=== PATIENT | female | born 1945 | race Caucasian/White ===

== ENCOUNTER 2017-12-13 13:06 | Outpatient (CLI) | payer MEDICARE, BC | END 2017-12-13 13:07 | disposition home or self-care (01) | LOC: BICMAMMO 13:06 | PROVIDERS: ATTEND Internal Medicine | DX: Z12.31 Encounter for screening mammogram for malignant neoplasm of breast (principal) | CPT/HCPCS: 77063; 77067 ==

== ENCOUNTER 2018-05-12 00:14 | Outpatient (CLI) | payer MEDICARE, BC ==
[2018-05-12 09:48] LABS: #Eosinphils 0.1 thou/uL (0.0-0.7); #Lymphocytes 1.8 thou/uL (1.20-3.40); #Monocytes 0.4 thou/uL (0.11-0.59); #Neutrophils 3.5 thou/uL (1.40-6.50); %Basophils 0.5 % (0.0-1.0); %Eosinophils 2.5 % (0.0-10.0); %Lymphocytes 29.8 % (21.0-51.0); %Monocytes 7.5 % (0.0-10.0); %Neutrophils 59.7 % (42.0-75.0); Bilirubin Negative (Negative); Blood, Urine Negative (Negative); Clarity CLEAR (Clear); Glucose, Urine (Dipstick) >=1000 mg/dL (Negative); Hemoglobin 14.9 g/dL (12.0-16.0); Leukocyte Negative (Negative); Mean Corpuscular HGB CONC 33.9 g/dL (32.0-36.0); Mean Corpuscular Hemoglobin 31.2 pg (27.0-31.0); Mean Platelet Volume 8.8 fL (7.4-10.4); Nitrite Negative (Negative); Platelet Count 207 thou/uL (130-400); Protein, Urine (Dipstick) Negative (Neg-Trace); RBC Distribution Width 11.6 % (11.5-14.5); Red Blood Cell (RBC) Count 4.77 mill/uL (4.20-5.40); Specific Gravity, Urine 1.008 (1.002-1.036); Urobilinogen 0.2 mg/dL (0.2-1.0); White Blood Cell (WBC) Count 5.9 thou/uL (4.8-10.8); pH, Urine 5.5 (5.0-9.0)
[2018-05-12 09:50] LABS: Bacteria/HPF None Seen HPF (None Seen); Hyaline Casts/LPF 0-3 HYALINE CAST LPF (0-3 Hyaline); Pathc Cast-AUWi Flag 0.13 (0-2.49); RBC/HPF 0-3 HPF (0-3); Squamous Epithelial 0-3 HPF (0-3); WBC/HPF 0-3 HPF (0-3)
[2018-05-12 09:54] LABS: INR-International Normal Ratio 0.9; Prothrombin Time 12.3 SEC (12.0-14.7)
[2018-05-12 10:16] LABS: Anion Gap 13 mmol/L (10-20); BUN (Urea Nitrogen) 16 mg/dL (9.8-20.1); Calc. Creatinine Clearance 0 mL/min (70-130); Calcium 9.9 mg/dL (7.8-10.44); Carbon Dioxide 25 mmol/L (23-31); Chloride 102 mmol/L (98-107); Estimated GFR-MDRD 49; Glucose 354 mg/dL (83-110); Potassium 4.2 mmol/L (3.5-5.1); Sodium 136 mmol/L (136-145)
--- NOTE | 2018-05-13 16:40 | EKG ---
Test Reason : Blood Pressure : / mmHG Vent. Rate : 062 BPM Atrial Rate : 062 BPM P-R Int : 202 ms QRS Dur : 086 ms QT Int : 420 ms P-R-T Axes : 056 019 043 degrees QTc Int : 426 ms Normal sinus rhythm Low voltage QRS Cannot rule out Anterior infarct , age undetermined Abnormal ECG When compared with ECG of 29-DEC-2006 14:53, No significant change was found Confirmed by DR. Brisa LUCIA ([id number]) on 05/13/2018 4:39:41 PM Referred By: AMANDA Confirmed By:DR. Brisa LUCIA
== END 2018-05-12 00:15 | disposition home or self-care (01) ==
LOC: LABBT 00:14
PROVIDERS: ATTEND Orthopaedic Surgery
DX: Z01.818 Encounter for other preprocedural examination (principal); M17.12 Unilateral primary osteoarthritis, left knee
CPT/HCPCS: 80048; 81001; 85025; 85610; 86850; 86900; 86901; 87081; 93005; 93010

== ENCOUNTER 2018-07-21 13:30 | Inpatient (IN) | payer MEDICARE, BC ==
[2018-07-27 10:54] LABS: Hemoglobin 15.8 g/dL (12.0-16.0); Mean Corpuscular HGB CONC 34.3 g/dL (32.0-36.0); Mean Corpuscular Hemoglobin 31.6 pg (27.0-31.0); Mean Corpuscular Volume 92.2 fL (78.0-98.0); Mean Platelet Volume 9.2 fL (7.4-10.4); Platelet Count 171 thou/uL (130-400); RBC Distribution Width 12.1 % (11.5-14.5); Red Blood Cell (RBC) Count 5.01 mill/uL (4.20-5.40)
[2018-07-27 10:59] LABS: INR-International Normal Ratio 0.9; Prothrombin Time 12.5 SEC (12.0-14.7)
[2018-08-02] MEDS ORDERED: Fentanyl 100 MCG/2 ML VIAL ONE ×4 (07:48→11:53)
[2018-08-02] MEDS ORDERED: Midazolam HCl 2 mg/2 ml Vial ONE (07:48)
[2018-08-02] MEDS ORDERED: Sodium Chloride 0.9% 10 ML ONE (07:49)
[2018-08-02] MEDS ORDERED: Tranexamic Acid 1,000 MG/10 ML VIAL ONE (08:14)
[2018-08-02] MEDS ORDERED: Sodium Chloride 0.9% 100 ML ONE (08:14)
[2018-08-02] MEDS ORDERED: Fentanyl 100 MCG/2 ML VIAL IV PRN (09:00)
[2018-08-02] MEDS ORDERED: Bupivacaine/Epinephrine 0.25% 30 ML VIAL ONE (09:10)
[2018-08-02] MEDS ORDERED: Zolpidem Tartrate 5 MG TAB PO PRN ×2 (09:37→11:36)
[2018-08-02] MEDS ORDERED: Ondansetron PF 4 MG/2 ML Vial IVP PRN ×2 (09:37→11:36)
[2018-08-02] MEDS ORDERED: traMADol HCl 50 MG TAB PO PRN ×3 (09:37→11:36)
[2018-08-02] MEDS ORDERED: Promethazine HCl 25 MG/ML VIAL IM PRN ×3 (09:37→11:36)
[2018-08-02] MEDS ORDERED: HYDROcodone/Acetaminophen 10/325 mg Tablet PO PRN ×3 (09:37→11:36)
[2018-08-02] MEDS ORDERED: Promethazine HCl 25 MG/ML VIAL SLOW IVP PRN (11:31)
[2018-08-02] MEDS ORDERED: Ondansetron HCl/PF 4 MG/2 ML Vial IVP PRN (11:31)
[2018-08-02] MEDS ORDERED: Acetaminophen 325 MG TAB PO PRN (11:36)
[2018-08-02] MEDS ORDERED: Ketorolac Tromethamine 30 MG/ML VIAL IVP PRN (11:36)
[2018-08-02] MEDS ORDERED: Fentanyl 100 MCG/2 ML VIAL SLOW IVP PRN ×2 (11:36)
[2018-08-02] MEDS ORDERED: diphenhydrAMINE 25 MG CAP PO PRN (11:36)
[2018-08-02] MEDS ORDERED: Ketorolac Tromethamine 30 MG/ML VIAL IVP SCH (12:00)
--- NOTE | 2018-08-02 12:26 | RAD ---
TWO VIEWS LEFT KNEE: DATE: 08/02/2018. PROVIDED CLINICAL HISTORY: Postop. FINDINGS: Comparison 04/14/2018. Interval postoperative changes of left total knee arthroplasty. Associated so ft tissue gas. No evidence for an acute osseous abnormality. IMPRESSION: As above. POS: OFF
--- NOTE | 2018-08-02 12:37 | OP ---
DATE OF PROCEDURE: 08/02/2018 PREOPERATIVE DIAGNOSES: 1. Left knee osteoarthritis. 2. Parameniscal cyst. POSTOPERATIVE DIAGNOSES: 1. Left knee osteoarthritis. 2. Parameniscal cyst. PROCEDURES PERFORMED: Left total knee arthroplasty with decompression of parameniscal cyst. DIRECTOR ENERGY: Harman Segura PA-C ANESTHESIOLOGIST: Dr. Jo. ANESTHESIA: The patient received LMA with a single-shot sciatic and an adductor canal block. ESTIMATED BLOOD LOSS: 100 mL. TOURNIQUET TIME: 77 minutes at 300 mmHg. ANTIBIOTICS: Ancef 2 g, vancomycin 1 g, and TXA 1 g. The patient received a size 4 femur, size 4 tibia, 4 x 9 mm CS poly and an A29 patella triathlon implants. COMPLICATIONS: None. HISTORY OF PRESENT ILLNESS: Ms. Lindsey is a 73-year-old female, status post with left knee arthroplasty, failed conservative measures, desired to proceed left total knee arthroplasty. I discussed risks and benefits of surgery to include pain, scar, bleeding, infection, damage to vital structures, decreased range of motion and strength, nonunion, malunion, fracture above and below the stem, loss of life or limb. She understood the risks and benefits, and elected to proceed. DESCRIPTION OF PROCEDURE: Time-out was performed designating the patient's left lower extremity as the operative site based on site, consents, markings. After time-out, the patient's left lower extremity was prepped and draped in sterile fashion. The tourniquet was brought up and left up for a total of 77 minutes. Anterior midline incision in the medial patellar approach was made, excised the fat pad. The medial soft tissue released. The small stab incision helped decompress the meniscus, helped the soft tissue medially. We then removed the meniscal cyst. We expressed some of the gelatinous material from the meniscus, then everted the patella, exposed distal femur, mapped out our distal femur cut, 0 degrees of varus and valgus, 10 and 9 and 4 degrees of anterior slope. We then pinned our 3 degree block guide, it was initially for a right, which we re-pinned for left. We cut. We sized to 4 and cut with a 4 degree block anterior and posterior chamfer cuts , removed the osteophytes. We then placed our pickle fork down our soft tissue. Medial soft tissue released, exposed our distal tibia, mapped out the distal tibia and cut in about 0, 6, and 4 degrees of slope. Removed the osteophytes, liked the overall alignment and position. We then went back and we removed all the osteophytes and placed our laminar sales estimator medial and lateral. Did our medial meniscectomy, decompressed the medial cyst expressing the remainder of it out and did our lamina sales estimator removed the posterior osteophytes with medial and laterally. We completed this, decompressing the PCL, removing the osteophytes medial and laterally off the medial tibial plateau. We then pinned our tibial tray into position in-line with the tibial tubercle 1/3rd down the shaft. Placed our 9 polys, placed our femur in position. The patient came out extension, had good stable posterior drawer with PCL, had good flexion-extension axis. We then everted the patella, cut from a 24 down to a 13 mm. We placed A29 patella, tracked well. We then washed, removed all implants, drilled our legs for femur cut our keel for tibia, drilled some hole in the small medial defect. We then placed our tibial tray, cemented into place, removed excess cement, placed our poly, placed our femur, removed excess cement, placed our patella, removed excess cement, washed, closed with #2 Vicryl, 2 STRATAFIX, 0 STRATAFIX, 3-0 STRATAFIX, and glue. The patient will be admitted for postop protocol, followed inhouse by Medicine and Anesthesiology. Job ID: [id number] [facility]
[2018-08-02] MEDS: Sodium Chloride 0.9% 1,000 ML IV SCH ×2 (15:47→20:03)
[2018-08-02] MEDS: CEFAZOLIN 2 GM in Premix Bag 1 BAG IVPB SCH (15:47)
[2018-08-02] MEDS ORDERED: Vancomycin HCl 1 GM in Premix Bag 1 BAG IVPB SCH (20:00)
[2018-08-02] MEDS: Aspirin 81 mg Enteric Coated Tablet PO SCH (20:04)
[2018-08-02] MEDS: Senokot S 8.6-50 MG TAB PO SCH (20:04)
[2018-08-02] MEDS: HYDROcodone/Acetaminophen 10/325 mg Tablet PO PRN (20:04)
[2018-08-02] MEDS: Ferrous Gluconate 324 MG TAB PO SCH (20:04)
[2018-08-03] MEDS: HYDROcodone/Acetaminophen 10/325 mg Tablet PO PRN ×4 (00:17→15:19)
[2018-08-03] MEDS: CEFAZOLIN 2 GM in Premix Bag 1 BAG IVPB SCH (00:19)
[2018-08-03] MEDS ORDERED: Ropivacaine 0.5% HCl/PF (150 MG/30 ML VIAL) ONE (00:56)
[2018-08-03 05:32] LABS: Hemoglobin 13.4 g/dL (12.0-16.0); Mean Corpuscular HGB CONC 33.9 g/dL (32.0-36.0); Mean Corpuscular Hemoglobin 31.3 pg (27.0-31.0); Mean Corpuscular Volume 92.4 fL (78.0-98.0); Platelet Count 168 thou/uL (130-400); RBC Distribution Width 11.9 % (11.5-14.5); Red Blood Cell (RBC) Count 4.28 mill/uL (4.20-5.40); White Blood Cell (WBC) Count 8.8 thou/uL (4.8-10.8)
[2018-08-03] MEDS: Aspirin 81 mg Enteric Coated Tablet PO SCH ×2 (09:15→20:23)
[2018-08-03] MEDS: Ferrous Gluconate 324 MG TAB PO SCH ×2 (09:15→20:23)
[2018-08-03] MEDS: Senokot S 8.6-50 MG TAB PO SCH ×2 (09:15→20:23)
[2018-08-03] MEDS: Multivitamin W/ Minerals 1 TAB PO SCH (09:15)
[2018-08-03] MEDS: Sodium Chloride 0.9% 1,000 ML IV SCH ×2 (09:19→12:21)
[2018-08-03] MEDS ORDERED: Dextrose 5% in Water 1,000 ML IV PRN (12:39)
[2018-08-03] MEDS ORDERED: Mag-Al Plus 1200 MG/1200 MG/120 MG/30 ML UDCUP PO PRN (12:39)
[2018-08-03] MEDS ORDERED: Dextrose 50% Abboject 50 ML SYRINGE SLOW IVP PRN (12:39)
[2018-08-03] MEDS ORDERED: HumaLOG 300 UNITS/3 ML VIAL SC PRN ×2 (12:39)
--- NOTE | 2018-08-03 13:12 | PDOC.PN ---
- Subjective Encounter Start Date: 08/03/18 Encounter Start Time: 08:50 Subjective: no sob or palp -: had some nausea earlier but its resolved, had breakfast - Objective MAR Reviewed: Yes Vital Signs & Weight: Vital Signs (12 hours) Temp Pulse Resp BP BP Pulse Ox 08/03/18 12:20 98.5 F 104 H 18 145/78 H 97 08/03/18 08:05 99.0 F 88 16 122/66 96 08/03/18 04:16 98.8 F 85 16 130/68 97 Weight Admit Weight 165 lb Weight 165 lb I&O: 08/02/18 08/03/18 08/04/18 06:59 06:59 06:59 Intake Total 1950 Output Total 5650 Balance -3700 Result Diagrams: 08/03/18 04:45 Phys Exam - Physical Examination HEENT: PERRLA, moist MMs Neck: no JVD, supple Respiratory: no wheezing, no rales Cardiovascular: RRR, no significant murmur Gastrointestinal: soft, non-tender, positive bowel sounds Musculoskeletal: pulses present left knee in dressing Neurological: non-focal, moves all 4 limbs Psychiatric: normal affect, A&O x 3 Dx/Plan (1) Status post total knee replacement, left Code(s): Z96.652 - PRESENCE OF LEFT ARTIFICIAL KNEE JOINT Status: Acute (2) HTN (hypertension) Code(s): I10 - ESSENTIAL (PRIMARY) HYPERTENSION Status: Chronic Qualifiers: Hypertension type: essential hypertension Qualified Code(s): I10 - Essential (primary) hypertension (3) DM type 2 (diabetes mellitus, type 2) Status: Chronic Qualifiers: Diabetes mellitus chcf insulin use: without chcf use Diabetes mellitus complication status: without complication Qualified Code(s): E11.9 - Type 2 diabetes mellitus without complications (4) Dyslipidemia Code(s): E78.5 - HYPERLIPIDEMIA, UNSPECIFIED Status: Chronic - Plan hemostable post op -: continue asp bid, norvasc, lipitor, lower glipizide dose -: lopressor bid lower dose for now -: mobilize per ortho adv -: will f/u * . Review of Systems - Medications/Allergies Allergies/Adverse Reactions: Allergies Allergy/AdvReac Type Severity Reaction Status Date / Time ciprofloxacin [From Cipro] Allergy Verified 08/02/18 14:11 levofloxacin [From Levaquin] Allergy hallucination, Verified 08/02/18 14:11 depression metformin Allergy Diarrhea Verified 08/02/18 14:11 fluoroquinolone Allergy Uncoded 08/02/18 14:11 Medications: Current Medications Acetaminophen (Tylenol) 650 mg PO Q4H PRN PRN Reason: Headache/Fever or Pain Hydrocodone Bitart/Acetaminophen (Milton 10/325) 1 tab PO Q4H PRN PRN Reason: Pain (1-3) Hydrocodone Bitart/Acetaminophen (Milton 10/325) 2 tab PO Q4H PRN PRN Reason: PAIN (4-6) Last Admin: 08/03/18 09:17 Dose: 2 tab Hydrocodone Bitart/Acetaminophen (Milton 10/325) 1 tab PO Q4H PRN PRN Reason: Moderate Pain (4-6) Hydrocodone Bitart/Acetaminophen (Milton 10/325) 2 tab PO Q4H PRN PRN Reason: Severe Pain (7-10) Al Hydroxide/Mg Hydroxide (Maalox Plus) 30 ml PO Q6H PRN PRN Reason: Heartburn or Indigestion Amlodipine Besylate (Norvasc) 5 mg PO DAILY [facility] Aspirin (Ecotrin) 81 mg PO BID [facility] Last Admin: 08/03/18 09:15 Dose: 81 mg Atorvastatin Calcium (Lipitor) 40 mg PO HS [facility] Dextrose/Water (Dextrose 50%) 25 gm SLOW IVP PRN PRN PRN Reason: Hypoglycemia Diphenhydramine HCl (Benadryl) 25 mg PO Q6H PRN PRN Reason: Itching Doxazosin Mesylate (Cardura) 2 mg PO BID [facility] Fentanyl (Sublimaze) 50 mcg IV Q1HR PRN PRN Reason: Breakthrough Pain Fentanyl (Sublimaze) 50 mcg SLOW IVP Q30MIN PRN PRN Reason: Moderate Pain (4-6) Fentanyl (Sublimaze) 100 mcg SLOW IVP Q1H PRN PRN Reason: Severe Pain (7-10) Ferrous Gluconate (Fergon) 324 mg PO BID [facility] Last Admin: 08/03/18 09:15 Dose: 324 mg Glipizide (Glucotrol) 5 mg PO BID-AC [facility] Glucagon (Glucagon) 1 mg IM PRN PRN PRN Reason: Hypoglycemia Ropivacaine 250 ml/ Device 250 mls @ 10 mls/hr NERVE BLCK INF [facility] Sodium Chloride (Normal Saline 0.9%) 1,000 mls @ 100 mls/hr IV .Q10H [facility] Last Admin: 08/03/18 12:21 Dose: Not Given Dextrose/Water (D5w) 1,000 mls @ 0 mls/hr IV .Q0M PRN PRN Reason: Hypoglycemia Insulin Human Lispro (Humalog) 0 units SC .MODERATE SLIDING SC PRN PRN Reason: Moderate Correctional Scale Insulin Human Lispro (Humalog) 0 units SC .BEDTIME SLIDING SC PRN PRN Reason: Bedtime Correctional Scale Iron/Minerals/Multivitamins (Theragran M) 1 tab PO DAILY [facility] Last Admin: 08/03/18 09:15 Dose: 1 tab Ketorolac Tromethamine (Toradol) 15 mg IVP Q8H PRN PRN Reason: Pain Stop: 08/07/18 11:37 Metoprolol Tartrate (Lopressor) 50 mg PO BID [facility] Ondansetron HCl (Zofran) 4 mg IVP Q6H PRN PRN Reason: Nausea/Vomiting Last Admin: 08/02/18 17:49 Dose: 4 mg Ondansetron HCl (Zofran) 4 mg IVP Q6H PRN PRN Reason: Nausea/Vomiting Pantoprazole Sodium (Protonix) 40 mg PO DAILY [facility] Pantoprazole Sodium (Protonix) 40 mg PO ONE ONE Stop: 08/03/18 12:40 Promethazine HCl (Phenergan) 12.5 mg IM Q4H PRN PRN Reason: Nausea Promethazine HCl (Phenergan) 12.5 mg IM Q4H PRN PRN Reason: Nausea/Vomiting Senna/Docusate Sodium (Senokot S) 2 tab PO BID [facility] Last Admin: 08/03/18 09:15 Dose: 2 tab Sodium Chloride (Flush - Normal Saline) 10 ml IVF PRN PRN PRN Reason: Saline Flush Tramadol HCl (Ultram) 50 mg PO Q6H PRN PRN Reason: Mild Pain (1-3) Tramadol HCl (Ultram) 100 mg PO Q6H PRN PRN Reason: Moderate Pain 4-6 Tramadol HCl (Ultram) 100 mg PO Q6H PRN PRN Reason: Moderate Pain (4-6) Zolpidem Tartrate (Ambien) 5 mg PO HSPRN PRN PRN Reason: Insomnia
[2018-08-03] MEDS: Ropivacaine HCl/PF 250 ML in Premix Bag 1 BAG NERVE BLCK SCH (15:12)
[2018-08-03] MEDS: glipiZIDE 5 MG TAB PO SCH (15:21)
[2018-08-03] MEDS: Metoprolol Tartrate 50 MG TAB PO SCH (20:23)
[2018-08-03] MEDS: Doxazosin 2 MG TAB PO SCH (20:23)
[2018-08-03] MEDS ORDERED: Metoprolol Tartrate 100 MG TAB PO SCH (21:00)
[2018-08-03] MEDS ORDERED: glipiZIDE 10 MG TAB PO SCH (21:00)
[2018-08-03] MEDS ORDERED: Atorvastatin Calcium 40 MG TAB PO SCH (21:00)
[2018-08-04] MEDS: Ropivacaine HCl/PF 250 ML in Premix Bag 1 BAG NERVE BLCK SCH (03:27)
[2018-08-04] MEDS: Sodium Chloride 0.9% 1,000 ML IV SCH ×2 (04:46→15:02)
[2018-08-04 05:54] LABS: Hemoglobin 12.8 g/dL (12.0-16.0); Mean Corpuscular HGB CONC 32.6 g/dL (32.0-36.0); Mean Corpuscular Hemoglobin 30.4 pg (27.0-31.0); Mean Corpuscular Volume 93.4 fL (78.0-98.0); Mean Platelet Volume 8.9 fL (7.4-10.4); Platelet Count 151 thou/uL (130-400); RBC Distribution Width 12.1 % (11.5-14.5); White Blood Cell (WBC) Count 9.3 thou/uL (4.8-10.8)
[2018-08-04] MEDS: glipiZIDE 5 MG TAB PO SCH (06:46)
[2018-08-04] MEDS ORDERED: Amlodipine 10 MG TAB PO SCH (09:00)
[2018-08-04] MEDS ORDERED: Amlodipine 5 MG TAB PO SCH (09:00)
[2018-08-04] MEDS: Aspirin 81 mg Enteric Coated Tablet PO SCH (09:11)
[2018-08-04] MEDS: Metoprolol Tartrate 50 MG TAB PO SCH (09:12)
[2018-08-04] MEDS: Senokot S 8.6-50 MG TAB PO SCH (09:12)
[2018-08-04] MEDS: Multivitamin W/ Minerals 1 TAB PO SCH (09:12)
[2018-08-04] MEDS: Ferrous Gluconate 324 MG TAB PO SCH (09:13)
[2018-08-04] MEDS: Doxazosin 2 MG TAB PO SCH (09:17)
[2018-08-04] MEDS: HYDROcodone/Acetaminophen 10/325 mg Tablet PO PRN ×2 (09:21→14:39)
--- NOTE | 2018-08-04 13:20 | PDOC.PN ---
- Subjective Encounter Start Date: 08/04/18 Encounter Start Time: 07:45 Subjective: feels good, no nausea this am -: has amb well with PT yesterday - Objective MAR Reviewed: Yes Vital Signs & Weight: Vital Signs (12 hours) Temp Pulse Resp BP BP BP Pulse Ox 08/04/18 11:50 98.3 F 76 16 120/69 95 08/04/18 09:12 90 150/78 H 08/04/18 08:00 95 08/04/18 07:25 98.6 F 90 16 150/78 H 95 08/04/18 04:22 98.9 F 82 15 139/74 93 L Weight Admit Weight 165 lb Weight 165 lb I&O: 08/03/18 08/04/18 08/05/18 06:59 06:59 06:59 Intake Total 1950 1300 Output Total 5650 Balance -3700 1300 Result Diagrams: 08/04/18 04:42 Additional Labs: Accuchecks 08/04/18 08/04/18 08/03/18 11:14 06:07 20:52 POC Glucose 77 93 78 08/03/18 16:26 POC Glucose 162 H Phys Exam - Physical Examination HEENT: PERRLA, moist MMs Neck: no JVD, supple Respiratory: no wheezing, no rales Cardiovascular: RRR, no significant murmur Gastrointestinal: soft, non-tender, positive bowel sounds Musculoskeletal: pulses present Neurological: non-focal, moves all 4 limbs Psychiatric: normal affect, A&O x 3 Dx/Plan (1) Status post total knee replacement, left Code(s): Z96.652 - PRESENCE OF LEFT ARTIFICIAL KNEE JOINT Status: Acute (2) HTN (hypertension) Code(s): I10 - ESSENTIAL (PRIMARY) HYPERTENSION Status: Chronic Qualifiers: Hypertension type: essential hypertension Qualified Code(s): I10 - Essential (primary) hypertension (3) DM type 2 (diabetes mellitus, type 2) Status: Chronic Qualifiers: Diabetes mellitus assisted insulin use: without assisted use Diabetes mellitus complication status: without complication Qualified Code(s): E11.9 - Type 2 diabetes mellitus without complications (4) Dyslipidemia Code(s): E78.5 - HYPERLIPIDEMIA, UNSPECIFIED Status: Chronic - Plan hemostable -: dc plan per ortho adv -: to continue home meds on discharge * .
[2018-08-04 15:28] VITALS: BP 136/68; TEMP 98.1
--- NOTE | 2018-08-04 16:11 | DIS ---
DATE OF ADMISSION: 08/02/2018 DATE OF DISCHARGE: 08/04/2018 DISCHARGE DISPOSITION: Home. PRIMARY DISCHARGE DIAGNOSIS: Status post left total knee replacement. SECONDARY DISCHARGE DIAGNOSES: Hypertension; diabetes mellitus type 2; dyslipidemia. PROCEDURES DONE DURING HOSPITALIZATION: The patient had left total knee arthroplasty with decompression of parameniscal cyst done by Dr. Rhodes on 08/02/2018. H and H 12 and 39, platelet count 151. DISCHARGE MEDICATIONS: 1. Norvasc 5 mg p.o. daily. 2. Lipitor 40 mg p.o. q.h.s. 3. Doxazosin 2 mg p.o. twice daily. 4. Steglatro 5 mg p.o. daily. 5. Folic acid 0.4 mg p.o. daily. 6. Glipizide 10 mg twice daily. 7. Lisinopril 20 mg twice daily. 8. Metoprolol 100 mg twice daily. 9. Multivitamin one tablet once daily. 10. Aspirin 81 mg twice daily. ALLERGIES: ALLERGIC TO QUINOLONES AND METFORMIN. DISCHARGE PLAN: The patient to follow up with Dr. Rhodes as advised and primary care physician in 1 week. BRIEF COURSE DURING HOSPITALIZATION: The patient initially was electively admitted for left total knee arthroplasty by Dr. Rhodes on the . This was done on the by Dr. Rhodes. Postop, [facility] were consulted for comanagement of medical issues. She has remained hemodynamically stable postop. The patient is participating well with physical therapy. Her pain is well controlled on current medications. She has remained hemodynamically stable and will be shortly discharged home per orthopedic advice. She needs to follow up with Dr. Rhodes as advised. Job ID: [id number]
[2018-08-04 19:37] VITALS: BMI 29.6
== END 2018-08-04 15:34 | disposition home or self-care (01) | DRG 470 ==
LOC: SJJU 08-02 06:51 → SURG B 08-02 12:49
PROVIDERS: ADMIT Orthopaedic Surgery; ATTEND Orthopaedic Surgery
PROC: 0SRD0J9 Replacement of Left Knee Joint with Synthetic Substitute, Cemented, Open Approach (ICD-10-PCS; principal; 2018-08-02)
PROC: 0SBD0ZZ Excision of Left Knee Joint, Open Approach (ICD-10-PCS; 2018-08-02)
DX: M17.12 Unilateral primary osteoarthritis, left knee (principal); M23.007 Cystic meniscus, unspecified meniscus, left knee; I10 Essential (primary) hypertension; E11.9 Type 2 diabetes mellitus without complications; E78.5 Hyperlipidemia, unspecified; Z79.84 Long term (current) use of oral hypoglycemic drugs; Z79.82 Long term (current) use of aspirin; Z79.899 Other long term (current) drug therapy; Z88.8 Allergy status to other drugs, medicaments and biological substances
CPT/HCPCS: 36415; 36416; 85027; 85610; 86850; 86900; 86901; C1713; C1776; J0690; J2250; J2405; J2795; J3010; J3370; J3490

== ENCOUNTER 2018-07-27 09:55 | Outpatient (CLI) | payer MEDICARE, BC ==
[2018-07-27 11:16] LABS: Anion Gap 16 mmol/L (10-20); BUN (Urea Nitrogen) 15 mg/dL (9.8-20.1); Calc. Creatinine Clearance 0 mL/min (70-130); Carbon Dioxide 23 mmol/L (23-31); Chloride 108 mmol/L (98-107); Estimated GFR-MDRD 58; Glucose 118 mg/dL (83-110); Potassium 4.5 mmol/L (3.5-5.1); Sodium 142 mmol/L (136-145)
== END 2018-07-27 09:56 | disposition home or self-care (01) ==
LOC: LABBT 09:55
PROVIDERS: ATTEND Orthopaedic Surgery
DX: Z01.812 Encounter for preprocedural laboratory examination (principal); M17.11 Unilateral primary osteoarthritis, right knee
CPT/HCPCS: 80048; 87081

== ENCOUNTER 2018-11-08 08:30 | Day surgery (SDC) | payer MEDICARE, BC ==
[2018-11-07 12:46] VITALS: BMI 29.2
[2018-11-08 09:18] LABS: #Basophils 0.1 thou/uL (0.0-0.2); #Eosinphils 0.2 thou/uL (0.0-0.7); #Lymphocytes 1.9 thou/uL (1.20-3.40); #Monocytes 0.4 thou/uL (0.11-0.59); #Neutrophils 3.4 thou/uL (1.40-6.50); %Basophils 0.8 % (0.0-1.0); %Lymphocytes 32.1 % (21.0-51.0); %Monocytes 6.7 % (0.0-10.0); %Neutrophils 57.3 % (42.0-75.0); Hemoglobin 14.8 g/dL (12.0-16.0); Mean Corpuscular HGB CONC 34.9 g/dL (32.0-36.0); Mean Corpuscular Hemoglobin 30.8 pg (27.0-31.0); Mean Corpuscular Volume 88.4 fL (78.0-98.0); Mean Platelet Volume 8.8 fL (7.4-10.4); Platelet Count 176 thou/uL (130-400); RBC Distribution Width 12.6 % (11.5-14.5); Red Blood Cell (RBC) Count 4.78 mill/uL (4.20-5.40)
[2018-11-08] MEDS ORDERED: Fentanyl 100 MCG/2 ML VIAL ONE ×2 (09:20→09:54)
[2018-11-08] MEDS ORDERED: Midazolam HCl 2 mg/2 ml Vial ONE (09:20)
[2018-11-08 09:33] LABS: Anion Gap 12 mmol/L (10-20); BUN (Urea Nitrogen) 13 mg/dL (9.8-20.1); Calc. Creatinine Clearance 67 mL/min (70-130); Calcium 9.6 mg/dL (7.8-10.44); Carbon Dioxide 25 mmol/L (23-31); Chloride 105 mmol/L (98-107); Estimated GFR-MDRD 64; Glucose 130 mg/dL (83-110); Potassium 4.4 mmol/L (3.5-5.1); Sodium 138 mmol/L (136-145)
--- NOTE | 2018-11-08 12:06 | RAD ---
3 VIEW LEFT KNEE: Date: 11/08/18 INDICATION: Knee manipulation. FINDINGS: Left knee prosthesis is present without hardware complication. No acute osseous abnormality. There ar e scattered soft tissue calcifications of the imaged thigh and leg of the left lower extremity. IMPRESSION: Postoperative left knee, without acute osseous abnormality visualized. POS: C
--- NOTE | 2018-11-08 16:53 | OP ---
DATE OF PROCEDURE: 11/08/2018 PREOPERATIVE DIAGNOSIS: Postoperative stiffness of left total knee. POSTOPERATIVE DIAGNOSIS: Postoperative stiffness of left total knee. PROCEDURE: Left knee manipulation under anesthesia. CAR PICK UP DRIVER: None. ANESTHESIA: Garcia the patient received a LMA and a single-shot femoral. ESTIMATED BLOOD LOSS: None. TOURNIQUET TIME: None. ANTIBIOTICS: None. COMPLICATIONS: None. HISTORY OF PRESENT ILLNESS: Ms. Lindsey is a 73-year-old female, who underwent a total knee arthroplasty on 08/02/2018. The patient had minimal pain, but she has limited range of motion. I discussed the risks and benefits of a manipulation to include pain, scar, bleeding, infection, fracture, need for further surgeries. The patient understood the risks and benefits and elected to proceed. DESCRIPTION OF PROCEDURE: Time-out was performed designating the patient's left lower extremity as the operative site based on site, consents, and marking. After time-out, the patient's left lower extremity, she received a block and anesthesia. I looked at her, measured preop 0-95 degrees. I was able to extend her with gentle force to about neutral to -5. I was able to flex her up to 130 at its full capacity, but 125. We regained about 30 to 40 degrees of flexion and may be 5 degrees extension. We took final x-rays showing no fracture in patella, femur, tibia on AP, lateral, and flexed knee views. After completion of procedure, the patient was woken up. The patient will be sent to home. She will need a walker if the femoral block limits her ability to mobilize. I discussed the risk with family of falling. We could put a knee immobilizer as needed. Job ID: [id number] [facility]
== END 2018-11-08 12:15 | disposition home or self-care (01) ==
LOC: SDC 08:30
PROVIDERS: ATTEND Orthopaedic Surgery
PROC: 0SSDXZZ Reposition Left Knee Joint, External Approach (ICD-10-PCS; principal; 2018-11-08)
PROC: 3E0T3BZ Introduction of Anesthetic Agent into Peripheral Nerves and Plexi, Percutaneous Approach (ICD-10-PCS; 2018-11-08)
DX: M25.662 Stiffness of left knee, not elsewhere classified (principal); G89.18 Other acute postprocedural pain; Z96.652 Presence of left artificial knee joint; Z88.1 Allergy status to other antibiotic agents; Z88.8 Allergy status to other drugs, medicaments and biological substances; Z95.5 Presence of coronary angioplasty implant and graft
CPT/HCPCS: 36415; 80048; 85025; J2250; J3010

== ENCOUNTER 2022-04-13 09:03 | Outpatient (CLI) | payer MEDICARE, BC | END 2022-04-13 09:04 | disposition home or self-care (01) | LOC: LABBT 09:03 | PROVIDERS: ATTEND Thoracic Surgery (Cardiothoracic Vascular Surgery) | DX: Z01.812 Encounter for preprocedural laboratory examination (principal); I25.118 Atherosclerotic heart disease of native coronary artery with other forms of angina pectoris | CPT/HCPCS: 80048; 85027; 86850; 86900; 86901 ==

== ENCOUNTER 2022-04-13 09:15 | Inpatient (IN) | payer MEDICARE, BC ==
[2022-04-13 10:26] LABS: Hemoglobin 14.6 g/dL (12.0-15.5); Mean Corpuscular HGB CONC 33.2 g/dL (32.0-36.0); Mean Corpuscular Hemoglobin 30.1 pg (27.0-33.0); Mean Corpuscular Volume 90.7 fl (81.6-98.3); Mean Platelet Volume 11.1 fl (7.4-10.4); Platelet Count 215 10x3/uL (150-450); RBC Distribution Width 12.5 % (11.5-14.5); Red Blood Cell (RBC) Count 4.85 10x6/uL (3.90-5.03); White Blood Cell (WBC) Count 5.5 10x3/uL (3.5-10.5)
[2022-04-13 10:46] LABS: Anion Gap 16 mmol/L (10-20); BUN (Urea Nitrogen) 18 mg/dL (9.8-20.1); Calc. Creatinine Clearance 0 mL/min (70-130); Calcium 9.6 mg/dL (7.8-10.44); Carbon Dioxide 21 mmol/L (23-31); Chloride 106 mmol/L (98-107); Estimated GFR 50; Glucose 172 mg/dL (83-110); Potassium 4.4 mmol/L (3.5-5.1); Sodium 139 mmol/L (136-145)
[2022-04-14] MEDS ORDERED: Albumin 5% 500 ML ONE (06:26)
[2022-04-14] MEDS ORDERED: Bupivacaine HCl 0.5%/Epinephrine 1:200,000/PF 30 ml Vial ONE (06:26)
[2022-04-14] MEDS ORDERED: Dexamethasone 4 mg/ml Vial ONE (06:26)
[2022-04-14] MEDS ORDERED: Lidocaine 1% MPF 2 ML VIAL ONE (06:49)
[2022-04-14] MEDS ORDERED: Dexmedetomidine 200 MCG/2 ML VIAL ONE (06:50)
[2022-04-14] MEDS ORDERED: Fentanyl 250 MCG/5 ML VIAL ONE (06:50)
[2022-04-14] MEDS ORDERED: Midazolam HCl 5 mg/5 ml Vial ONE (06:50)
[2022-04-14] MEDS ORDERED: Ondansetron ODT 4 MG TAB ONE (07:00)
[2022-04-14] MEDS ORDERED: Heparin 10,000 UNITS/1 ML VIAL 30,000 UNITS in Sodium Chloride 0.9% 1,000 ML FS SCH (07:00)
[2022-04-14] MEDS ORDERED: Sodium Chloride 0.9% 100 ML ONE (07:21)
[2022-04-14] MEDS ORDERED: CEFAZOLIN 2 GM VIAL ONE (07:21)
[2022-04-14] MEDS ORDERED: Norepinephrine 4 MG/4 ML VIAL ONE (07:34)
[2022-04-14] MEDS ORDERED: Magnesium 5 GM/10 ML VIAL ONE (07:34)
[2022-04-14] MEDS ORDERED: Papaverine 60 MG/2 ML VIAL ONE (07:34)
[2022-04-14] MEDS ORDERED: Ketorolac Tromethamine 30 MG/ML VIAL ONE (07:34)
[2022-04-14] MEDS ORDERED: Heparin 30,000 units/30 ml VIAL ONE (07:34)
[2022-04-14] MEDS ORDERED: Cardioplegic Soln 1,000 ML BAG ONE (07:34)
[2022-04-14] MEDS ORDERED: Sodium Bicarb 50 MEQ/50 ML VIAL ONE (07:34)
[2022-04-14] MEDS ORDERED: Lidocaine 2% PF 100 mg/5 ml Syringe ONE (07:34)
[2022-04-14] MEDS ORDERED: PROPOFOL 200 MG/20 ML VIAL ONE (07:34)
[2022-04-14] MEDS ORDERED: Vancomycin 1 GM VIAL ONE (07:34)
[2022-04-14] MEDS ORDERED: Dexamethasone 20 MG/5 ML VIAL ONE (07:34)
[2022-04-14] MEDS ORDERED: Potassium Chloride 60 MEQ/30 ML VIAL ONE (07:34)
[2022-04-14] MEDS ORDERED: Aminocaproic Acid 5 GM/20 ML VIAL ONE (07:34)
[2022-04-14] MEDS ORDERED: Heparin 5,000 UNITS/ML VIAL ONE (07:34)
[2022-04-14] MEDS ORDERED: Vecuronium 10 MG VIAL ONE (07:34)
[2022-04-14] MEDS ORDERED: Protamine Sulfate 250 MG/25 ML VIAL ONE (07:34)
[2022-04-14] MEDS ORDERED: Calcium Chloride 1 GM/10 ML Abboject SYRINGE ONE (07:34)
[2022-04-14] MEDS ORDERED: Ondansetron PF 4 MG/2 ML Vial ONE (07:34)
[2022-04-14] MEDS ORDERED: Thrombin 5000 UNITS/5 ML VIAL ONE (07:34)
[2022-04-14] MEDS ORDERED: Lidocaine 1% PF 5 ML VIAL ONE (07:34)
[2022-04-14] MEDS ORDERED: Mannitol 12.5 GM/50 ML ONE (07:34)
[2022-04-14 07:51] LABS: SARS-CoV-2 NAA Rapid Test Not Detected (NotDetected)
[2022-04-14] MEDS ORDERED: PHENYLEPHRINE-NS 100 MCG/ML 10 ML SYRINGE ONE (08:40)
[2022-04-14] MEDS ORDERED: Insulin Regular 300 UNITS/3 ML VIAL ONE (09:51)
[2022-04-14] MEDS ORDERED: NOREPINEPHRINE 8 MG/250 ML-D5W 250 ML IVPB PRN (10:42)
[2022-04-14] MEDS ORDERED: Bisacodyl 10 MG SUPP PR PRN (10:42)
[2022-04-14] MEDS ORDERED: Mag-Al 1200 mg/1200 mg/30 ML UDCUP PO PRN (10:42)
[2022-04-14] MEDS ORDERED: Guaifenesin DM 100-10/5 ML UDCUP PO PRN (10:42)
[2022-04-14] MEDS ORDERED: traMADol HCl 50 MG TAB PO PRN (10:42)
[2022-04-14] MEDS ORDERED: Ipratropium/Albuterol 3 ML NEB NEB PRN (10:42)
[2022-04-14] MEDS ORDERED: Hetastarch 6% 500 ML 500 ML IVPB PRN (10:42)
[2022-04-14] MEDS ORDERED: Morphine 2 MG/ML VIAL SLOW IVP PRN (10:42)
[2022-04-14] MEDS ORDERED: Potassium Chloride 20 MEQ/100 ML PREMIX BAG IVPB PRN (10:42)
[2022-04-14] MEDS ORDERED: Acetaminophen 325 MG TAB PO PRN (10:42)
[2022-04-14] MEDS ORDERED: Post-Op Insulin Drip Protocol IVPB ONE (10:42)
[2022-04-14] MEDS ORDERED: hydrALAZINE 20 MG/ML VIAL SLOW IVP PRN (10:42)
[2022-04-14] MEDS ORDERED: niCARdipine 25 MG in Sodium Chloride 0.9% 250 ML 250 ML IVPB PRN (10:42)
[2022-04-14] MEDS ORDERED: Ondansetron PF 4 MG/2 ML Vial IVP PRN (10:42)
[2022-04-14] MEDS ORDERED: Fentanyl 100 MCG/2 ML VIAL SLOW IVP PRN (10:42)
[2022-04-14] MEDS ORDERED: Bisacodyl 5 MG TAB PO PRN (10:42)
[2022-04-14] MEDS ORDERED: Potassium Chloride 20 MEQ in Lactated Ringer's 1,000 ML IV SCH (10:42)
[2022-04-14 11:18] LABS: Actual Bicarbonate (HCO3a) 24.8 mEq/L (22-28); Base Excess (BEa) -2.4 mEq/L (-2.0 to +3.0); Calcium, Ionized (arterial) 1.13 mmol/L (1.12-1.30); Carboxyhemoglobin (COHb) 0.6 gm% (0.0-3.0); Hemoglobin (Hb) 13.4 g/dL (12.0-16.0); Potassium - ABG Lab 4.79 mmol/L (3.70-5.30); Puncture Site Arterial Line; pH, Arterial 7.29 (7.35-7.45)
[2022-04-14 11:31] LABS: #Eosinphils 0.1 thou/uL (0.0-0.7); #Lymphocytes 2.2 thou/uL (1.20-3.40); #Monocytes 0.4 thou/uL (0.11-0.59); %Basophils 0.1 % (0.0-1.0); %Eosinophils 0.5 % (0.0-10.0); %Lymphocytes 18.6 % (21.0-51.0); %Monocytes 3.3 % (0.0-10.0); %Neutrophils 77.5 % (42.0-75.0); Hemoglobin 12.6 g/dL (12.0-16.0); Mean Corpuscular HGB CONC 33.3 g/dL (32.0-36.0); Mean Corpuscular Hemoglobin 31.4 pg (27.0-31.0); Mean Corpuscular Volume 94.5 fl (78.0-98.0); Mean Platelet Volume 8.9 fL (7.4-10.4); Platelet Count 145 10x3/uL (130-400); RBC Distribution Width 11.7 % (11.5-14.5); White Blood Cell (WBC) Count 11.6 10x3/uL (4.8-10.8)
[2022-04-14 11:41] LABS: INR-International Normal Ratio 1.2; Prothrombin Time 15.5 sec (12.0-14.7)
[2022-04-14 11:42] LABS: PTT 29.6 sec (22.9-36.1)
[2022-04-14 11:50] LABS: Anion Gap 12 mmol/L (10-20); BUN (Urea Nitrogen) 15 mg/dL (9.8-20.1); Calc. Creatinine Clearance 63 mL/min (70-130); Calcium 7.5 mg/dL (7.8-10.44); Carbon Dioxide 19 mmol/L (23-31); Chloride 112 mmol/L (98-107); Estimated GFR 66; Glucose 170 mg/dL (83-110); Potassium 4.8 mmol/L (3.5-5.1); Sodium 138 mmol/L (136-145)
[2022-04-14 11:57] LABS: Actual Bicarbonate (HCO3a) 23.7 mEq/L (22-28); Base Excess (BEa) -2.4 mEq/L (-2.0 to +3.0); CO2 Tension 45.8 mmHg (35.0-45.0); Calcium, Ionized (arterial) 1.14 mmol/L (1.12-1.30); Carboxyhemoglobin (COHb) 0.8 gm% (0.0-3.0); Hemoglobin (Hb) 13.7 g/dL (12.0-16.0); O2 Tension (PaO2), arterial 62.1 mmHg (> 70.0); Potassium - ABG Lab 4.64 mmol/L (3.70-5.30); pH, Arterial 7.33 (7.35-7.45)
[2022-04-14 11:59] LABS: Puncture Site Arterial Line
[2022-04-14] MEDS ORDERED: Insulin Regular 300 UNITS/3 ML VIAL SC PRN (12:00)
[2022-04-14] MEDS ORDERED: Dextrose 5% in Water 1,000 ML IV PRN (12:00)
[2022-04-14] MEDS ORDERED: Dextrose 50% Abboject 50 ML SYRINGE SLOW IVP PRN (12:00)
[2022-04-14] MEDS ORDERED: HUMULIN R 100 UNITS in Sodium Chloride 0.9% 100 ML IVPB SCH (12:00)
[2022-04-14] MEDS: Ketorolac Tromethamine 30 MG/ML VIAL IVP SCH ×2 (12:05→17:56)
[2022-04-14 12:30] LABS: Actual Bicarbonate (HCO3a) 26.9 mEq/L (22-28); Analyzer IN Cardio OR; Base Excess (BEa) 0.6 mEq/L (-2.0 to +3.0); CO2 Tension 51.8 mmHg (35.0-45.0); Calcium, Ionized (arterial) 1.26 mmol/L (1.12-1.30); Carboxyhemoglobin (COHb) 0.3 gm% (0.0-3.0); Hemoglobin (Hb) 9.8 g/dL (12.0-16.0); O2 Tension (PaO2), arterial 450.4 mmHg (> 70.0); Potassium - ABG Lab 5.31 mmol/L (3.70-5.30); pH, Arterial 7.33 (7.35-7.45)
[2022-04-14 12:31] LABS: Actual Bicarbonate (HCO3a) 19.8 mEq/L (22-28); Analyzer IN Cardio OR; Base Excess (BEa) -5.6 mEq/L (-2.0 to +3.0); CO2 Tension 38.4 mmHg (35.0-45.0); Calcium, Ionized (arterial) 0.88 mmol/L (1.12-1.30); Carboxyhemoglobin (COHb) 0.3 gm% (0.0-3.0); Hemoglobin (Hb) 9.5 g/dL (12.0-16.0); O2 Tension (PaO2), arterial 508.9 mmHg (> 70.0); pH, Arterial 7.33 (7.35-7.45)
[2022-04-14 12:31] LABS: Actual Bicarbonate (HCO3a) 22.6 mEq/L (22-28); Analyzer IN Cardio OR; Base Excess (BEa) -2.1 mEq/L (-2.0 to +3.0); CO2 Tension 38.7 mmHg (35.0-45.0); Calcium, Ionized (arterial) 1.14 mmol/L (1.12-1.30); Carboxyhemoglobin (COHb) 0.1 gm% (0.0-3.0); Hemoglobin (Hb) 10.5 g/dL (12.0-16.0); O2 Tension (PaO2), arterial 131.1 mmHg (> 70.0); Potassium - ABG Lab 4.44 mmol/L (3.70-5.30); pH, Arterial 7.39 (7.35-7.45)
[2022-04-14 12:31] LABS: Actual Bicarbonate (HCO3a) 19.4 mEq/L (22-28); Analyzer IN Cardio OR; Base Excess (BEa) -5.8 mEq/L (-2.0 to +3.0); CO2 Tension 36.7 mmHg (35.0-45.0); Calcium, Ionized (arterial) 1.11 mmol/L (1.12-1.30); Carboxyhemoglobin (COHb) 0.4 gm% (0.0-3.0); O2 Tension (PaO2), arterial 328.2 mmHg (> 70.0); pH, Arterial 7.34 (7.35-7.45)
[2022-04-14 12:33] LABS: Puncture Site Arterial Line
[2022-04-14 12:33] LABS: Actual Bicarbonate (HCO3a) 23.5 mEq/L (22-28); Analyzer IN Cardio OR; Base Excess (BEa) -1.4 mEq/L (-2.0 to +3.0); CO2 Tension 40.1 mmHg (35.0-45.0); Calcium, Ionized (arterial) 1.15 mmol/L (1.12-1.30); Carboxyhemoglobin (COHb) 0.7 gm% (0.0-3.0); Hemoglobin (Hb) 13.1 g/dL (12.0-16.0); O2 Tension (PaO2), arterial 223.6 mmHg (> 70.0); Potassium - ABG Lab 4.09 mmol/L (3.70-5.30); Puncture Site Arterial Line; pH, Arterial 7.39 (7.35-7.45)
[2022-04-14 12:34] LABS: Puncture Site Arterial Line
[2022-04-14 12:34] LABS: Puncture Site Arterial Line
[2022-04-14 12:35] LABS: Puncture Site Arterial Line
[2022-04-14] MEDS ORDERED: Lactated Ringer's 1,000 ML IV SCH (12:45)
[2022-04-14] MEDS: CEFAZOLIN 2 GM in Sodium Chloride 0.9% 100 ML IVPB SCH (16:18)
[2022-04-14 16:36] LABS: Hemoglobin 11.7 g/dL (12.0-16.0)
[2022-04-14 16:49] LABS: Potassium 4.2 mmol/L (3.5-5.1)
[2022-04-14] MEDS: Fentanyl 100 MCG/2 ML VIAL SLOW IVP PRN (20:19)
[2022-04-14] MEDS ORDERED: Famotidine/PF 20 mg/2ml Vial SLOW IVP SCH (21:00)
[2022-04-14] MEDS ORDERED: Atorvastatin Calcium 20 MG TAB PO SCH (21:00)
[2022-04-15] MEDS: CEFAZOLIN 2 GM in Sodium Chloride 0.9% 100 ML IVPB SCH ×2 (00:13→07:48)
[2022-04-15] MEDS: Ketorolac Tromethamine 30 MG/ML VIAL IVP SCH ×4 (00:13→23:43)
[2022-04-15] MEDS: Fentanyl 100 MCG/2 ML VIAL SLOW IVP PRN (00:33)
[2022-04-15 04:17] LABS: #Lymphocytes 1.2 thou/uL (1.20-3.40); #Monocytes 0.7 thou/uL (0.11-0.59); #Neutrophils 7.3 thou/uL (1.40-6.50); %Basophils 0.1 % (0.0-1.0); %Eosinophils 0.2 % (0.0-10.0); %Monocytes 7.3 % (0.0-10.0); %Neutrophils 79.4 % (42.0-75.0); Hemoglobin 11.6 g/dL (12.0-16.0); Mean Corpuscular Hemoglobin 33.1 pg (27.0-31.0); Mean Corpuscular Volume 94.6 fl (78.0-98.0); Mean Platelet Volume 9.1 fL (7.4-10.4); Platelet Count 142 10x3/uL (130-400); RBC Distribution Width 11.6 % (11.5-14.5); Red Blood Cell (RBC) Count 3.51 mill/uL (4.20-5.40); White Blood Cell (WBC) Count 9.2 10x3/uL (4.8-10.8)
[2022-04-15 04:45] LABS: Anion Gap 9 mmol/L (10-20); BUN (Urea Nitrogen) 15 mg/dL (9.8-20.1); Calc. Creatinine Clearance 71 mL/min (70-130); Calcium 8.1 mg/dL (7.8-10.44); Carbon Dioxide 25 mmol/L (23-31); Chloride 110 mmol/L (98-107); Estimated GFR 65; Glucose 100 mg/dL (83-110); Potassium 3.8 mmol/L (3.5-5.1); Sodium 140 mmol/L (136-145)
[2022-04-15] MEDS ORDERED: Milk Of Magnesia 30 ML UDCUP PO PRN (08:04)
[2022-04-15] MEDS ORDERED: Guaifenesin DM 100-10/5 ML UDCUP PO PRN (08:04)
[2022-04-15] MEDS ORDERED: Zolpidem Tartrate 5 MG TAB PO PRN (08:04)
[2022-04-15] MEDS ORDERED: Mag-Al 1200 mg/1200 mg/30 ML UDCUP PO PRN (08:04)
[2022-04-15] MEDS ORDERED: diphenhydrAMINE 25 MG CAP PO PRN (08:04)
[2022-04-15] MEDS ORDERED: Bisacodyl 5 MG TAB PO PRN (08:04)
[2022-04-15] MEDS ORDERED: Nitroglycerin 0.4 MG TAB (25 Tab Bottle) SL PRN (08:04)
[2022-04-15] MEDS ORDERED: Mineral Oil ENEMA PR PRN (08:04)
[2022-04-15] MEDS ORDERED: Bisacodyl 10 MG SUPP PR PRN (08:04)
[2022-04-15] MEDS: Magnesium 2 GM/50 ML(in water) 2 GM in Premix Bag 1 BAG IVPB SCH (08:25)
[2022-04-15] MEDS ORDERED: Potassium Chloride 10 MEQ TAB PO SCH (08:30)
[2022-04-15] MEDS ORDERED: HUMULIN R 100 UNITS in Sodium Chloride 0.9% 100 ML IVPB SCH (08:30)
[2022-04-15] MEDS: traMADol HCl 50 MG TAB PO PRN ×2 (08:56→16:32)
[2022-04-15] MEDS: Aspirin 325 MG TAB PO SCH (08:57)
[2022-04-15] MEDS: Furosemide 40 MG TAB PO SCH (08:58)
[2022-04-15] MEDS ORDERED: Insulin Glargine 30 UNITS/0.3 ML VIAL SC PRN (11:48)
[2022-04-15] MEDS: glipiZIDE 10 MG TAB PO SCH (16:16)
[2022-04-15] MEDS: Insulin Regular 300 UNITS/3 ML VIAL SC PRN ×3 (16:35→23:54)
[2022-04-15] MEDS: Atorvastatin Calcium 40 MG TAB PO SCH (20:29)
[2022-04-15] MEDS ORDERED: Metoprolol Tartrate 25 MG TAB PO SCH (21:00)
[2022-04-16] MEDS: Insulin Regular 300 UNITS/3 ML VIAL SC PRN ×3 (03:45→11:47)
[2022-04-16] MEDS: Ketorolac Tromethamine 30 MG/ML VIAL IVP SCH ×5 (05:44→23:53)
[2022-04-16] MEDS: Potassium Chloride 10 MEQ TAB PO SCH (07:30)
[2022-04-16] MEDS: glipiZIDE 10 MG TAB PO SCH ×2 (07:30→18:04)
[2022-04-16] MEDS ORDERED: Insulin Glargine 30 UNITS/0.3 ML VIAL SC PRN (08:27)
[2022-04-16] MEDS: Furosemide 40 MG TAB PO SCH (08:46)
[2022-04-16] MEDS: Aspirin 325 MG TAB PO SCH (08:46)
[2022-04-16] MEDS: Metoprolol Tartrate 25 MG TAB PO SCH ×2 (08:46→21:12)
[2022-04-16] MEDS: Magnesium 2 GM/50 ML(in water) 2 GM in Premix Bag 1 BAG IVPB SCH (08:47)
[2022-04-16 10:44] VITALS: BMI 33.3
[2022-04-16 19:54] VITALS: BP 142/61
[2022-04-16] MEDS: Atorvastatin Calcium 40 MG TAB PO SCH (21:12)
[2022-04-16 22:42] VITALS: TEMP 98.3
[2022-04-17] MEDS: Ketorolac Tromethamine 30 MG/ML VIAL IVP SCH (06:00)
[2022-04-17] MEDS: glipiZIDE 10 MG TAB PO SCH (07:42)
[2022-04-17] MEDS ORDERED: Metoprolol Tartrate 50 MG TAB PO SCH (09:00)
[2022-04-17] MEDS: Potassium Chloride 10 MEQ TAB PO SCH (09:21)
[2022-04-17] MEDS: Aspirin 325 MG TAB PO SCH (09:21)
[2022-04-17] MEDS: Furosemide 40 MG TAB PO SCH (09:22)
== END 2022-04-17 10:15 | disposition home or self-care (01) | DRG 236 ==
LOC: SURG A 04-14 05:48 → CCU 04-14 11:11
PROVIDERS: ADMIT Thoracic Surgery (Cardiothoracic Vascular Surgery); ATTEND Thoracic Surgery (Cardiothoracic Vascular Surgery)
PROC: 02100Z9 Bypass Coronary Artery, One Artery from Left Internal Mammary, Open Approach (ICD-10-PCS; principal; 2022-04-14)
PROC: 021209W Bypass Coronary Artery, Three Arteries from Aorta with Autologous Venous Tissue, Open Approach (ICD-10-PCS; 2022-04-14)
PROC: 06BQ4ZZ Excision of Left Saphenous Vein, Percutaneous Endoscopic Approach (ICD-10-PCS; 2022-04-14)
PROC: 02L70ZK Occlusion of Left Atrial Appendage, Open Approach (ICD-10-PCS; 2022-04-14)
PROC: 5A1221Z Performance of Cardiac Output, Continuous (ICD-10-PCS; 2022-04-14)
DX: I25.118 Atherosclerotic heart disease of native coronary artery with other forms of angina pectoris (principal); E11.9 Type 2 diabetes mellitus without complications; I10 Essential (primary) hypertension; Z96.652 Presence of left artificial knee joint; E78.2 Mixed hyperlipidemia; H40.9 Unspecified glaucoma; Z79.82 Long term (current) use of aspirin; Z79.899 Other long term (current) drug therapy; Z88.1 Allergy status to other antibiotic agents; Z88.8 Allergy status to other drugs, medicaments and biological substances
CPT/HCPCS: 36416; 36430; 71045; 80048; 82805; 85025; 85027; 85610; 85730; 86850; 86900; 86901; 93005; 93010; 93798; 94002; C1751; C1776; J0360; J1100; J1642; J1644; J1815; J1885; J2001; J2150; J2250; J2405; J2440; J2704; J2720; J3010; J3370; J3475; J3480; J3490; J7120; P9045; Q0162; S0017; S0028; U0002